=== PATIENT | female | born 1990 | race African-American/Black ===

== ENCOUNTER 2016-10-24 11:46 | Emergency (ER) | payer MEDICAID ==
[~2016-10-24 11:46] MED LIST: BACTRIM DS TABL1 TA1 PO; LORTAB 5/500 TA1 TA1 PO
== END 2016-10-24 12:07 | disposition home or self-care (01) ==
LOC: CFTX 11:46
DX: L02.11 Cutaneous abscess of neck (principal)
CPT/HCPCS: 10060; 99283